=== PATIENT | female | born 1970 | race Caucasian/White ===

== ENCOUNTER 2016-09-19 10:03 | Emergency (ER) | payer SELFPAY ==
[2016-09-19 10:09] VITALS: BP 147/72; PULSE 83; RESP 16; TEMP 98.4; O2SAT 96
--- NOTE | 2016-09-19 10:54 | EDPHY ---
H & P Stated Complaint: sinus pressure/pain/st Time Seen by Provider: 09/19/16 10:37 HPI/ROS: CHIEF COMPLAINT: sore throat HISTORY OF PRESENT ILLNESS: 46-year-old immunocompetent female complaining of sore throat for 3 days, fetid odor. No fever no chills. No nausea no vomiting. No chest pain. No dyspnea. No abdominal pain. No rash. No cough. No URI symptoms. PRIMARY CARE PROVIDER: none REVIEW OF SYSTEMS: A ten point review of systems was performed and is negative with the exception of the items mentioned in the HPI PAST MEDICAL & SURGICAL HISTORY: "Heart murmur" SOCIAL HISTORY: Nonsmoker PHYSICAL EXAM (Prior to examination, patient consented to physical exam, hands were washed and my usual and customary physical exam procedures followed) 1) GENERAL: Well-developed, well-nourished, alert and oriented. Appears to be in no acute distress. 2) HEAD: Normocephalic, atraumatic 3) HEENT: Pupils equal, round, reactive to light bilaterally. Sclera anicteric. Oropharynx: No trismus no drooling. Bilateral tonsils are symmetrically enlarged with white exudate. No hot potato voice. Ears bilaterally with normal tympanic membranes. 4) NECK: Full range of motion, no meningeal signs. Positive submandibular tender adenopathy. 5) LUNGS: Clear auscultation bilaterally, no wheezes, no rhonchi, no retractions. 6) HEART: Regular rate and rhythm, no murmur, no heave, no gallop. 7) ABDOMEN: No guarding, no rebound, no focal tenderness, 8) MUSCULOSKELETAL: No peripheral edema or discoloration. 9) BACK: No CVA tenderness 10) SKIN: No rash, no petechiae. DIFFERENTIAL DIAGNOSIS: in no particular include but limited to peritonsillar abscess, strep pharyngitis, mononucleosis, retropharyngeal abscess - Personal History LMP (Females 10-55): 15-21 Days Ago Current Tetanus/Diphtheria Vaccine: No - Medical/Surgical History Hx Asthma: No Hx Chronic Respiratory Disease: No Hx Diabetes: No Hx Cardiac Disease: Yes Hx Renal Disease: No Hx Cirrhosis: No Hx Alcoholism: No Hx HIV/AIDS: No Hx Splenectomy or Spleen Trauma: No Other PMH: ventricular tachycardia - Social History Smoking Status: Never smoked Constitutional: Initial Vital Signs Temperature (C) 36.9 C 09/19/16 10:06 Heart Rate 83 09/19/16 10:06 Respiratory Rate 16 09/19/16 10:06 Blood Pressure 147/72 H 09/19/16 10:06 O2 Sat (%) 96 09/19/16 10:06 O2 Delivery Mode Room Air Allergies/Adverse Reactions: No Known Allergies Allergy (Verified 09/19/16 10:06) Home Medications: Medication Instructions Recorded Amoxicillin/Clavulanate Pot 875 mg PO BID #14 tab 09/19/16 [Augmentin 875 mg tab] Medical Decision Making ED Course/Re-evaluation: High clinical suspicion for strep pharyngitis based on patient's clinical presenting signs and symptoms. Doubt peritonsillar abscess or deep space infection or retropharyngeal abscess. I recommend starting the patient on Augmentin and recommended Medrol Dosepak or other steroid. She declines steroids. Offered analgesia which she declines. Recommended follow up with ENT which she agrees to. Usual and customary oropharyngeal precautions and instructions provided - Data Points Laboratory Results: 09/19/16 09/19/16 Unknown 10:20 Group A Strep Screen NEGATIVE (NEGATIVE) Group A Strep DNA Pending Departure - Departure Disposition: Home, Routine, Self-Care Clinical Impression: Acute streptococcal pharyngitis Condition: Good Instructions: Strep Throat (ED) Additional Instructions: Return to the ER immediately if you cannot swallow, have drooling, fevers, neck stiffness, cannot open your jaw, or any other symptoms that concern you. Referrals: Paul Frye MD [Medical Doctor] - 2-3 days, call for appt. Prescriptions: Amoxicillin/Clavulanate Pot [Augmentin 875 mg tab] 875 mg PO BID #14 tab
== END 2016-09-19 11:01 | disposition home or self-care (01) ==
DX: J02.0 Streptococcal pharyngitis (principal)